=== PATIENT | male | born 2000 | race Caucasian/White ===

== ENCOUNTER 2024-11-19 08:51 | Emergency (ER) | payer MEDICAID, SELFPAY ==
[2024-11-19 09:00] VITALS: BP 167/100; PULSE 83; RESP 20; TEMP 37.1; O2SAT 97; BMI 30.7
--- NOTE | 2024-11-19 09:04 | XR_ITS ---
Examination: Foot, right, 3 views Technique: AP, oblique, lateral views foot, 3 views Date and time of exam: November 19, 2024 0909 hours INDICATIONS: Right foot pain and swelling today no trauma FINDINGS: Adequate bone density. No fracture or dislocation. No cortical bone destruction. No opaque foreign body IMPRESSION: No cortical bone destruction No opaque foreign body
--- NOTE | 2024-11-19 09:05 | EDNOTE_ITS ---
Lower Extremity Injury RME/HPI General Chief Complaint: Ankle/Foot Injury Stated Complaint: RIGHT FOOT PAIN X AM, NO TRAUMA Time Seen by Provider: 11/19/24 08:57 Arrival date/time: 11/19/24 08:51 34-year-old male with no significant medical problems presents emergency department with complaints of right great toe pain since last night patient reports no injury Limitations: no limitations Related Data Previous Rx's ?Medication ?Instructions ?Recorded albuterol sulfate 90 mcg/actuation 1 puff inhalation Q6H PRN 11/19/18 aerosol inhaler (Ventolin HFA) shortness of breath or wheezing #18 grams azithromycin 500 mg tablet See Rx Instructions PO .COMPLEX #3 11/19/18 tabs hydrocodone 5 mg-acetaminophen 325 1 tab PO BID PRN pain #6 tabs 11/19/24 mg tablet indomethacin 50 mg capsule 50 mg PO TID 5 days #15 caps 11/19/24 prednisone 10 mg tablet 30 mg (3 x 10 mg) PO BID 3 days 11/19/24 #18 tabs Allergies Allergy/AdvReac Type Severity Reaction Status Date / Time No Known Allergies Allergy Verified 04/30/20 20:01 Review of Systems Review of Systems Systems Reviewed: All systems reviewed, normal except as documented Constitutional Constitutional: Reports system reviewed and no additional complaints, except as documented, Denies fever(s) and Denies headache(s) Eyes Eyes: Reports system reviewed and no additional complaints, except as documented and Denies blurry vision ENT Ears, Nose, Mouth, and Throat: Reports system reviewed and no additional complaints, except as documented, Denies headache(s), Denies nasal congestion and Denies nasal discharge Cardiovascular Cardiovascular: Reports system reviewed and no additional complaints, except as documented, Denies chest pain and Denies dyspnea Respiratory Respiratory: Reports system reviewed and no additional complaints, except as documented, Denies chest congestion, Denies cough and Denies dyspnea Gastrointestinal Gastrointestinal: Reports system reviewed and no additional complaints, except as documented and Denies abdominal pain Musculoskeletal Musculoskeletal: Reports system reviewed and no additional complaints, except as documented, Reports arthralgias, Denies deformity, Reports joint swelling, Denies stiffness and Denies tingling Integumentary/Breasts Skin/Breast: Reports system reviewed and no additional complaints, except as documented and Denies rash Neurologic Neurologic: Reports system reviewed and no additional complaints, except as documented, Reports as per HPI, Denies headache(s) and Denies tingling Past Medical History Past Medical History NEUROLOGIC: Negative Neurological Disorders CARDIAC: Negative Cardiac Disorders ED Exam General Limitations: Present no limitations General appearance: Present alert and in no apparent distress Head Head exam: Present atraumatic, normocephalic and normal inspection Eye Eye exam: Present normal appearance, PERRL and EOMI ENT ENT exam: Present normal exam, normal oropharynx and mucous membranes moist Neck Neck exam: Present normal inspection, full ROM and trachea midline Chest Chest inspection: Present normal inspection and symmetric chest wall rise Respiratory Respiratory exam: Present normal lung sounds bilaterally Cardiovascular Cardiovascular exam: Present regular rate, normal rhythm and normal heart sounds Abdominal Exam Abdominal exam: Present soft and normal bowel sounds Extremities Exam Extremities exam: Present full ROM, tenderness (Right great toe pain), normal capillary refill and joint swelling (Mild swelling right great toe) Back Exam Back exam: Present normal inspection and full ROM Neurological Exam Neurological exam: Present alert, oriented X3 and CN II-XII intact Psychiatric Psychiatric exam: Present normal affect and normal mood Skin Skin exam: Present warm, dry, intact and normal color Course Quality Measures none Orders Category Date Time Status Crutches .NOW Care 11/19/24 10:53 Completed sudeep wrap [Splint / Immobilizer] STAT Care 11/19/24 10:53 Completed XR foot comp RT min 3V Stat Exams 11/19/24 09:04 Completed Uric Acid Stat Lab 11/19/24 09:46 Completed HYDROcodone*/APAP 5/325 [[place] 5/325] Med 11/19/24 09:04 Discontinued 1 tab PO X1 ONE Ketorolac Inj [Toradol Inj] Med 11/19/24 09:04 Discontinued 30 mg IM X1 ONE Vital Signs Vital signs: Vital Signs Temperature 98.7 F 11/19/24 09:00 Pulse Rate 83 11/19/24 09:00 Respiratory Rate 20 11/19/24 09:00 Blood Pressure 167/100 H 11/19/24 09:00 Pulse Oximetry (%) 97 11/19/24 09:00 Oxygen Delivery Method Room Air 11/19/24 09:00 O2 saturation 97% room air within normal limits Extremity Injury, Lower MDM Narrative MDM Narrative:: 34-year-old male with no significant medical problems presents emergency department with complaints of right great toe pain since last night patient reports no injury On exam patient appears well does not appear ill or toxic On exam patient with tenderness right great toe Uric acid obtained X-ray obtained Patient given Toradol and [place] for pain Patient given crutches and Sudeep wrap Patient discharged home in no distress to follow-up with primary care doctor in the next 24 to 48 hours and for any worsening symptoms to return to the ER immediately Patient data External records reviewed:: [facility] previous records Clinical information provided by:: patient Social determinants that could affect healthcare access:: none Patient has the following chronic illnesses:: None How is presenting disease/condition affected by chronic disease/condition?: no chronic disease Evaluation data The following diagnostics were reviewed and interpreted by me:: radiology exam(s) Lab and/or radiology exams considered but not ordered:: Radiology obtain Interpretation Summary: Reviewed by me Medications / Prescriptions Medications or Prescriptions considered but not ordered:: Given Medication administrations:: Medication Administration History Discontinued Medications Hydrocodone Bitart/Acetaminophen (Hydrocodone/Apap 5/325 Tablet) 1 tab PO X1 ONE Stop: 11/19/24 09:05 Last Admin: 11/19/24 09:27 Dose: 1 tab Documented By: LAST Ketorolac Tromethamine (Ketorolac Inj 30 Mg/Ml Vial) 30 mg IM X1 ONE Stop: 11/19/24 09:05 Last Admin: 11/19/24 09:27 Dose: 30 mg Documented By: LAST Given Consultations Consultation(s) initiated? (list below): No Diagnosis Extremity Injury, Lower Differential Diagnosis: other (Toe sprain, toe fracture, gout) Most likely diagnosis given after review of the tests above:: Pain right great toe Admission Indicated Admission indicated?: not indicated Admission Request Was there a request for admission?: No Disposition Plan Disposition Plan: Discharge Discharge Attestation Discharge Attestation: The patient and all family members were given an opportunity to ask questions and understood the discharge instructions. Discharge instructions specifically effects, indications for sooner follow up or return to the emergency department, and the expected course of current diagnosis. Patient condition: Stable Discharge Plan Plan Patient Disposition: HOME (Self Care) Disposition Comment: Stable Prescriptions/Referrals Prescriptions/Med Rec: New prednisone 10 mg tablet 30 mg PO BID 3 Days Qty: 18 0RF hydrocodone-acetaminophen 5-325 mg tablet 1 tab PO BID MDD 10 PRN (Reason: pain) Qty: 6 0RF indomethacin 50 mg capsule 50 mg PO TID 5 Days Qty: 15 0RF Rx Instructions: administer with food or milk No Action albuterol sulfate [Ventolin HFA] 90 mcg/actuation HFA aerosol inhaler 1 puff INH Q6H PRN (Reason: shortness of breath or wheezing) Qty: 18 0RF azithromycin 500 mg tablet See Rx Instructions .ROUTE .COMPLEX Qty: 3 0RF Rx Instructions: take 500 mg once daily for 3 days Referrals: No Primary/Family,Physician [Primary Care Provider] - 11/20/24 Problem List Clinical Impression: Foot pain, right Patient/Caregiver Discharge Instructions Education Materials: ED RICE Additional Instructions: Please follow up with your primary care doctor in the next 24-48hrs for any worsening symptoms return here immediately Print Language: Northern Irish Stand Alone Forms: Elissa Award Info., Work/School Release, Patient Portal Info Letter PA/SSN/SSBN [employer]PER[employer] Supervising Physician PA/SSN/SSBN [employer] OPERATOR Supervising Physician: Dr Bryant
[2024-11-19] MEDS: HYDROcodone/APAP 5/325 TABLET 1 TAB PO (09:27)
[2024-11-19] MEDS: KETOROLAC INJ 30 MG/ML VIAL IM (09:27)
[2024-11-19 10:28] LABS: Uric Acid 8.6 mg/dL (3.7-9.2)
== END 2024-11-19 13:22 | disposition home or self-care (01) ==
PROVIDERS: Nurse Practitioner Primary Care; Emergency Provider Emergency Medicine
DX: M79.671 Pain in right foot (principal); M79.674 Pain in right toe(s); M79.89 Other specified soft tissue disorders
CPT/HCPCS: 36415; 73630; 84550; 96372; 99283; J1885; A9270